=== PATIENT | female | born 1955 | race Caucasian/White ===

== ENCOUNTER 2017-08-07 14:50 | Inpatient (IN) | payer OTHER ==
[~2017-08-07] VITALS: Ht 172.7 cm; Wt 67.6 kg
--- NOTE | ~2017-08-07 | HC ---
[facility] [place] [address] CONSULTATION Name: KRISTAL PURI Room #: 216-P ADM IN M.R.#: [id number] Admission: 08/07/17 Attend Phys: Cristofer Hemphill MD Discharge: Date of : 53 Report #: [id number] THIS REPORT FOR: //name// CC: Cristofer Armstrong Sabih DATE OF SERVICE: 08/08/2017 DATE OF SERVICE: 08/08/2017 REASON FOR CONSULTATION: Hypoxia. IMPRESSION: 1. Acute respiratory failure, question etiology. 2. Bronchiectasis. 3. History of recent pneumonia and multiple allergies. 4. Elevated troponin. 5. Acute kidney injury. 6. History of lupus, fibromyalgia. PLAN: Continue current antibiotics. We will try to induce sputum, increase activity, titrate oxygen as able. We need to get results from [place] as she was admitted there for similar event. Try to keep sedation to a minimal. We will also have speech therapy evaluate. HISTORY OF PRESENT ILLNESS: A 62-year-old female with history of per chart, lupus, fibromyalgia, adrenal insufficiency, was at [facility]. She relates because of altered mental status and felt to have pneumonia. She relates she had MRSA also in the past. She denies fever or much sputum production. Possible chills. No headache, no visual disturbance. She is alert and oriented and recalled yesterday, but relates it is somewhat foggy. PAST MEDICAL HISTORY: Per chart, includes: ALLERGIES: PENICILLIN, CARBAMAZEPINE, CIPRO, DOXYCYCLINE AND LISINOPRIL. MEDICATIONS: Included MiraLax, pregabalin, spironolactone, Flomax, hydrocodone, Advair, baclofen, zolpidem, amitriptyline 75 mg, Coreg, Lasix, hydroxychloroquine, Mobic, Savella. SOCIAL HISTORY: Negative tobacco, negative EtOH for 30 years. No drugs of abuse, 2 children, she relates with back problems. REVIEW OF SYSTEMS: No hemoptysis, hematemesis or hematuria. Did not know about CT results. No history of DVT or PE. Does have neuropathy and arthritis. She denied a history of asthma. [facility] [address] [place] [address] CONSULTATION Name: KRISTAL PURI Room #: 216-P [facility] IN ..#: [id number] Admission: 08/07/17 Attend Phys: Cristofer Hemphill MD Discharge: Date of : 53 Report #: [id number] PHYSICAL EXAMINATION: VITAL SIGNS: Temperature 98.4, T-max 77, respirations 18, BP 151/68. EYES: Negative icterus. NECK: Trachea midline. Thyroid not enlarged. LUNGS: Showed decreased breath sounds, few crackles. HEART: Regular. ABDOMEN: Bowel sounds present. EXTREMITIES: Showed trace edema, no cyanosis. LABORATORY DATA: Troponin 0.12. CT PE protocol showed bronchiectasis, subpleural nodularity. D-dimer 2.58, pH 7.43, pCO2 of 51, pO2 of 55 on room air. She relates she has not been on oxygen except for in hospital. UA showed 1-9 bacteria, leukocyte 1+, nitrite positive, urine culture pending. CT head showed no acute. White count 11. No bands. Alkaline phosphatase 183, creatinine 1.3, albumin 3.2. Appreciate the opportunity to assist in the care of your patient. <ELECTRONICALLY SIGNED> By: Zoie Mathews MD 08/10/172049 0755 [id number] Zoie Mathews MD /nt
--- NOTE | ~2017-08-07 | EKG ---
[place] [address] [employer] [place] [address] ELECTROCARDIOGRAM REPORT Name: KRISTAL PURI Room #: [facility]#: [id number] Admission: 08/07/17 Attend Phys: Discharge: Date of : 53 Report #: [id number] THIS REPORT FOR: //name// [facility] ED Test Date: 2017-08-07 Test Time: 15:31:08 Pat Name: KRISTAL PURI Department: Room: Gender: F [employer]: JESÚS : 1955 Requested By: Leesa Marquez Order Number: [id number] MD: Caleb Beck Measurements Intervals [place] Rate: 82 P: 25 OK: 142 QRS: -31 QRSD: 101 T: 57 QT: 326 QTc: 381 Interpretive Statements Sinus rhythm Probable left atrial enlargement Left axis deviation RSR' in V1 or V2, probably normal variant Nonspecific T abnrm, anterolateral leads No previous ECG available for comparison Electronically Signed On 08-07-2017 16:33:28 CDT by Caleb Beck [email or web address] <ELECTRONICALLY SIGNED> By: Caleb Beck MD 08/07/17 1633 30 30 Caleb Beck MD /RAFAEL
--- NOTE | ~2017-08-07 | HC ---
[facility] [address] [place] [address] CONSULTATION Name: KRISTAL Pilar Room #: 216-P [facility] IN M.R.#: [id number] Admission: 08/07/17 Attend Phys: Cristofer Hemphill MD Discharge: 08/13/17 Date of : 53 Report #: [id number] THIS REPORT FOR: //name// CC: Cristofer Armstrong Sabih DATE OF SERVICE: 08/12/2017 HISTORY OF PRESENT ILLNESS: The patient is a 62-year-old white female with history of lupus, fibromyalgia, adrenal insufficiency, had a prolonged hospitalization at [facility] apparently for a couple of months with acute respiratory failure and was on the vent. He was noted to be nonambulatory for a couple of months during her acute hospitalization and was transferred over to [facility] for skilled level therapies. While at [facility] she subsequently developed mental status changes again with hypoxia, elevated creatinine, and was noted to have acute respiratory failure, elevated troponin, thought secondary to hypoxia, acute renal insufficiency. She was noted to have bronchiectasis and bronchitis and urinary tract infection. She did have an acute encephalopathy, which has resolved. Infectious Disease is involved and she is to be on IV antibiotics for at least another week. There is noted with peritoneal vein thrombus and pulmonary had suggested follow up to see if she may need anticoagulation. She is at a decreased functional level and we are seeing her in rehabilitation medicine consultation. PAST MEDICAL HISTORY: Includes hypertension, fibromyalgia, lupus, pulmonary edema. MEDICATIONS: Please see the full medication listing. She does have multiple allergies, as are listed. HABITS: No history of tobacco or alcohol abuse. SOCIAL HISTORY: She lives with her in a house, 2 steps in, and he works. She notes she has a bad knee and apparently needs to have a total knee replacement, but her surgeon is concerned that she may not be a good surgical candidate. Her works during the day. The patient did not like to use the cane premorbidly. Again per reports, she has been nonambulatory for the last couple of months with her acute hospitalization at [place] and subsequent stay at [facility]. REVIEW OF SYSTEMS: No current complaints of chest pain, shortness of breath or abdominal discomfort. Notes she does have degenerative arthritis with joint complaints. She has a chronic pain with her fibromyalgia. PHYSICAL EXAMINATION: GENERAL: A 62-year-old white female in no obvious distress. [address] [address] CONSULTATION Name: KRISTAL Pilar Room #: 216-P [facility] IN M.R.#: [id number] Admission: 08/07/17 Attend Phys: Cristofer Hemphill MD Discharge: 08/13/17 Date of : 53 Report #: [id number] VITAL SIGNS: Last recorded temperature 97.8, pulse 68, respirations 18, blood pressure 150/69. She is alert, oriented. HEENT: Appeared to be benign. NEUROLOGIC: Cranial nerves are grossly intact. Facies are symmetric. EXTREMITIES: Upper extremities functional range of motion with strength 4-/5. In lower extremities, she has strength more of a grade 3/5 to maybe 3+/5. DTRs are decreased overall. Functionally, she has been max assist with sit to stand. She can reposition herself once seated. 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 2. Medical complexity with generalized debilitation. 3. Recent acute respiratory failure. 4. Bronchiectasis. 5. Bronchitis. 6. Urinary tract infection. 7. Elevated troponin, possibly due to hypoxia. 8. Acute renal injury. 9. Acute encephalopathy that has resolved. 10. 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 PLAN: She is at a lower functional level currently and her tolerance appears more at a skilled level. She has concerns regarding her ability to tolerate further therapy at this time as well. Note that fdc facility options are being considered and I would agree with this plan. She indicated to me that she does desire to go to a different fdc facility. This will be communicated with case management. Thank you for asking us to assist in this patient's care. <ELECTRONICALLY SIGNED> By: Jonas Walker MD 08/18/17 1316 [id number] [id number] Jonas Walker MD /[facility]
--- NOTE | ~2017-08-07 | 2DMMODE ---
[facility] [address] [facility] [place] [facility] [place] [address] 2 D/M-MODE ECHOCARDIOGRAM Name: KRISTAL PURI Room #: 216-P [facility] IN ..#: [id number] Admission: 08/07/17 Attend Phys: Cristofer Hemphill, Discharge: Date of : 53 Date of Service: 08/09/17 0855 Report #: [id number] THIS REPORT FOR: //name// APPROVED REPORT Study performed: 08/09/2017 09:13:16 EXAM: Comprehensive 2D, Doppler, and color-flow Echocardiogram Patient Location: Bedside Room #: 216 Status: routine BSA: 1.73 HR: 76 bpm BP: 124/50 mmHg Rhythm: NSR Other Information Study Quality: Good Indications Dyspnea, slightly elevated troponin. 2D Dimensions RVDd: 35.25 mm LVEF(%): 53.54 (>50%) IVSd: 10.20 (7-11mm) LVOT Diam: 21.79 (18-24mm) LVDd: 45.05 mm PWd: 10.23 (7-11mm) Ascending Ao: 30.02 (22-36mm) LVDs: 32.66 (25-40mm) Aortic Root: 32.87 mm Vargas's LVEF: 53.54 % Volumes Left Atrial Volume (Systole) Single Plane 4CH: 31.34 mL Single Plane 2CH: 61.30 mL LA ESV Index: 27.00 mL/m2 Aortic Valve AoV Peak Tahir.: 1.45 m/s AO Peak Gr.: 8.38 mmHg LVOT Max P.72 mmHg LVOT Max V: 1.09 m/s SHARI Vmax: 2.80 cm2 Mitral Valve E/A Ratio: 1.1 MV Decel. Time: 101.05 ms [facility] [place] [address] 2 D/M-MODE ECHOCARDIOGRAM Name: KRISTAL PURI Room #: 216-P [facility] IN .R.#: [id number] Admission: 08/07/17 Attend Phys: Cristofer Hemphill, Discharge: Date of : 53 Date of Service: 08/09/17 0855 Report #: [id number] MV E Max Tahir.: 0.99 m/s MV A Tahir.: 0.93 m/s MV PHT: 29.31 ms IVRT: 92.27 ms Pulmonary Valve PV Peak Tahir.: 1.04 m/s PV Peak Gr.: 4.35 mmHg Pulmonary Vein P Vein S: 0.65 m/s P Vein D: 0.45 m/s P Vein S/D Ratio: 1.44 Tricuspid Valve TR Peak Tahir.: 2.52 m/s RAP Estimate: 5.00 mmHg TR Peak Gr.: 25.35 mmHg PA Pressure: 30.00 mmHg Left Ventricle The left ventricle is normal size. There is normal LV segmental wall motion. Mild concentric LVH Left ventricular systolic function is normal. LVEF is 55-60%. Moderate diastolic dysfunction is present (pseudonormal filling). Right Ventricle The right ventricle is normal size. The right ventricular systolic function is normal. Atria The left atrium size is normal. The right atrium size is normal. Aortic Valve The aortic valve is normal in structure. No aortic regurgitation is present. There is no aortic valvular stenosis. Mitral Valve The mitral valve is normal in structure. Trace mitral regurgitation. Tricuspid Valve The tricuspid valve is normal in structure. Mild tricuspid regurgitation. Estimated PAP is 30mmHg. Pulmonic Valve The pulmonary valve is normal in structure. Trace pulmonic [address] [address] 2 D/M-MODE ECHOCARDIOGRAM Name: KRISTAL PURI Room #: 216-P [facility] IN .R.#: [id number] Admission: 08/07/17 Attend Phys: Cristofer Hemphill, Discharge: Date of : 53 Date of Service: 08/09/17 0855 Report #: [id number] regurgitation. Great Vessels The aortic root is normal in size. The ascending aorta is normal in size. IVC is normal in size and collapses >50% with inspiration. Pericardium There is no pericardial effusion. <Conclusion> Left ventricular systolic function is normal. There is normal LV segmental wall motion. Mild concentric LVH. LVEF 55-60%. Moderate diastolic dysfunction (pseudonormal filling). Structural valve disease was absent. No significant regurgitant or stenotic lesions Pulmonary artery pressure of 30mmHg There is no pericardial effusion. <ELECTRONICALLY SIGNED> By: Austin Young MD, FACC 08/09/17854 4 4 Austin Young MD, FACC /INF
[2017-08-07 14:51] VITALS: BP 150/54
[2017-08-07 15:18] LABS: HEMOGLOBIN 10.6 gm/dL (12.0-15.0)
[2017-08-07 15:20] LABS: ABSOLUTE NEUTROPHILS 8.6 thou/uL (1.4-8.2); BASOPHILS 0.7 % (0.0-2.0); EOSINOPHILS 1.7 % (0.0-3.0); HEMATOCRIT 32.2 % (37.0-47.0); LYMPHOCYTES 11.4 % (24.0-44.0); MCH 29.7 pg (26.0-34.0); MCHC 32.8 g/dL (28.0-37.0); MCV 90.6 fL (80.0-100.0); MONOCYTES 8.7 % (1.0-8.0); PLATELET COUNT 280 thou/uL (150-400); POLYS 77.5 % (36.0-66.0); RBC 3.56 mil/uL (4.20-5.00); RDW 15.5 % (10.5-14.5)
[2017-08-07 15:22] LABS: MANUAL DIFF NO
[2017-08-07 15:23] LABS: CALCIUM 10.4 mg/dL (8.5-10.1); CREATININE 1.3 mg/dL (0.6-1.0); POTASSIUM 4.4 mmol/L (3.5-5.1)
[2017-08-07 15:32] LABS: ALBUMIN 3.2 g/dL (3.4-5.0); TOTAL BILIRUBIN 0.2 mg/dL (<0.1-1.0); TOTAL PROTEIN 7.3 g/dL (6.4-8.2); TROPONIN-I 0.11 ng/mL (<0.06)
[2017-08-07 16:28] LABS: URINE BILIRUBIN NEGATIVE (Negative); URINE BLOOD NEGATIVE (Negative); URINE COLOR YELLOW; URINE GLUCOSE-RANDOM* NEGATIVE (Negative); URINE KETONES NEGATIVE (Negative); URINE NITRITE POSITIVE (Negative); URINE PROTEIN (DIPSTICK) NEGATIVE (Negative); URINE UROBILINOGEN 0.2 E.U./dl (0.2-1.0)
[2017-08-07 16:31] LABS: SQUAMOUS 0-3 Few /LPF (0-3)
[2017-08-07 16:32] LABS: BACTERIA 1-9 Few /HPF (None Seen); CASTS None Seen /LPF (None Seen); CRYSTALS None Seen /LPF (None Seen); URINE RBC None Seen /HPF (0-2); URINE WBC 0-5 Rare /HPF (0-5)
[2017-08-07 16:59] LABS: ABG SAMPLE TYPE ARTERIAL; BE(vivo) 7.8 mmol/L (-2 to +3); HCO3 33.2 mmol/L (22.0-26.0); LACTATE 0.84 mmol/L (0.5-2.0); O2(CT) 13.3 mL/dL (15.0-23.0); O2Hb 85.9 % (92.0-98.0); pH 7.432 (7.360-7.450); sO2 89.1 % (92.0-98.0); tCO2 34.8 mmol/L (24.0-30.0)
[2017-08-07 17:00] LABS: PO2 55.1 mmHg (80.0-100.0); STICK SITE R.RADIAL
[2017-08-07] MEDS ORDERED: MIRALAX17 GM PO (17:50)
[2017-08-07] MEDS ORDERED: ALDACTONE50 MG PO (17:51)
[2017-08-07] MEDS ORDERED: LYRICA 50 MG50 MG PO (17:51)
[2017-08-07] MEDS ORDERED: DUONEB 2.5-0.5 M3 ML INH (17:52)
[2017-08-07] MEDS ORDERED: FLOMAX0.4 MG PO (17:52)
[2017-08-07] MEDS ORDERED: NORCO 5-325 TA1 EACH PO (17:53)
[2017-08-07] MEDS ORDERED: ADVAIR HFA 230M12 GM INH (17:54)
[2017-08-07] MEDS ORDERED: COLACE100 MG PO (17:54)
[2017-08-07] MEDS ORDERED: BIOTENE MOIST44.3 ML SPRAY (17:54)
[2017-08-07] MEDS ORDERED: LIORESAL 10 MG10 MG PO (17:55)
[2017-08-07] MEDS ORDERED: AMBIEN 5 MG TABL5 M1 PO (17:56)
[2017-08-07] MEDS ORDERED: ASPIR-LOW81 MG PO (17:57)
[2017-08-07] MEDS ORDERED: AMITRIPTYLINE H25 M2 PO (17:57)
[2017-08-07] MEDS ORDERED: CALCIUM 500 +1 EAC5 PO (17:58)
[2017-08-07] MEDS ORDERED: SENNA8.6 MG PO (17:59)
[2017-08-07] MEDS ORDERED: CARVEDILOL3.125 MG PO (17:59)
[2017-08-07] MEDS ORDERED: LASIX 40 MG TAB40 M2 PO (18:00)
[2017-08-07] MEDS ORDERED: HYDROXYCHLOROQ200 M1 PO (18:02)
[2017-08-07] MEDS ORDERED: HYDROCORTISONE PO (18:02)
[2017-08-07] MEDS ORDERED: SAVELLA50 MG PO (18:03)
[2017-08-07] MEDS ORDERED: MOBIC7.5 MG PO (18:03)
[2017-08-07 18:42] VITALS: BP 149/57
[2017-08-08 00:27] VITALS: BP 150/62
[2017-08-08 03:04] VITALS: BP 151/68
[2017-08-08 08:00] VITALS: BP 119/47
[2017-08-08 12:00] VITALS: BP 115/48
[2017-08-08 15:03] LABS: ABG SAMPLE TYPE ARTERIAL; HCO3 30.5 mmol/L (22.0-26.0); LACTATE 1.05 mmol/L (0.5-2.0); O2(CT) 13.1 mL/dL (15.0-23.0); O2Hb 96.6 % (92.0-98.0); PCO2 50.3 mmHg (35.0-45.0); PO2 108.3 mmHg (80.0-100.0); pH 7.401 (7.360-7.450); sO2 97.9 % (92.0-98.0); tCO2 32.1 mmol/L (24.0-30.0)
[2017-08-08 15:04] LABS: ABG COMMENT NO COMPLICATIONS.; STICK SITE R.RADIAL
[2017-08-08 16:00] VITALS: BP 124/50
[2017-08-08 16:06] LABS: IgA 269 mg/dL (87-352); IgG 827 mg/dL (700-1600); IgM 161 mg/dL (26-217)
[2017-08-08 19:39] VITALS: BP 108/51
[2017-08-09 04:41] VITALS: BP 102/49
[2017-08-09 09:01] VITALS: BP 116/51
[2017-08-09 09:57] LABS: HEMATOCRIT 28.5 % (37.0-47.0); HEMOGLOBIN 9.3 gm/dL (12.0-15.0); MCH 30.1 pg (26.0-34.0); MCHC 32.7 g/dL (28.0-37.0); MCV 92.2 fL (80.0-100.0); RBC 3.09 mil/uL (4.20-5.00); RDW 15.5 % (10.5-14.5); WBC 7.5 thou/uL (4.0-11.0)
[2017-08-09 10:04] LABS: CREATININE 1.1 mg/dL (0.6-1.0); POTASSIUM 3.7 mmol/L (3.5-5.1)
[2017-08-09 20:38] VITALS: BP 110/52
[2017-08-10 03:07] VITALS: BP 118/57
[2017-08-10 08:15] VITALS: BP 118/52
[2017-08-10 11:10] VITALS: BP 101/44
[2017-08-10 15:13] VITALS: BP 121/60
[2017-08-10 19:30] VITALS: BP 143/54
[2017-08-11 04:30] VITALS: BP 145/65
[2017-08-11 06:02] LABS: HEMATOCRIT 25.2 % (37.0-47.0); HEMOGLOBIN 8.3 gm/dL (12.0-15.0); MCH 29.9 pg (26.0-34.0); MCHC 32.7 g/dL (28.0-37.0); MCV 91.5 fL (80.0-100.0); RBC 2.76 mil/uL (4.20-5.00); RDW 15.3 % (10.5-14.5); WBC 7.8 thou/uL (4.0-11.0)
[2017-08-11 06:08] LABS: CALCIUM 8.7 mg/dL (8.5-10.1); CREATININE 0.9 mg/dL (0.6-1.0); POTASSIUM 3.8 mmol/L (3.5-5.1)
[2017-08-11 07:58] VITALS: BP 121/57
[2017-08-11 11:33] VITALS: BP 103/50
[2017-08-11 15:29] VITALS: BP 134/59
[2017-08-11 19:20] VITALS: BP 141/62
[2017-08-12 03:39] VITALS: BP 118/64
[2017-08-12 07:51] VITALS: BP 133/63
[2017-08-12 11:08] VITALS: BP 150/69
[2017-08-12 15:00] VITALS: BP 120/58
[2017-08-12 19:19] VITALS: BP 153/75
[2017-08-13 03:49] VITALS: BP 157/71
[2017-08-13 06:55] VITALS: BP 136/65
[2017-08-13 11:15] VITALS: BP 149/67
[2017-08-13] MEDS ORDERED: VANCO 1.251.25 GM/15 IV (12:44)
[2017-08-13] MEDS ORDERED: ROCEPHIN 11 GM/1001 IV (12:45)
[2017-08-13] MEDS ORDERED: CARVEDILOL6.25 MG PO (12:46)
[2017-08-13] MEDS ORDERED: CORTEF 20 MG TA20 M1 PO (12:50)
== END 2017-08-13 16:00 | DRG 177 ==
LOC: ER 14:50 → 2N 17:41
PROVIDERS: Hospitalist; Internal Medicine; Internal Medicine Pulmonary Disease; Nurse Practitioner Family
DX: J15.212 Pneumonia due to Methicillin resistant Staphylococcus aureus (principal); J96.01 Acute respiratory failure with hypoxia; N17.9 Acute kidney failure, unspecified; N39.0 Urinary tract infection, site not specified; G93.1 Anoxic brain damage, not elsewhere classified; I82.890 Acute embolism and thrombosis of other specified veins; E66.2 Morbid (severe) obesity with alveolar hypoventilation; I10 Essential (primary) hypertension; M79.7 Fibromyalgia; M32.9 Systemic lupus erythematosus, unspecified; J47.9 Bronchiectasis, uncomplicated; B96.1 Klebsiella pneumoniae [K. pneumoniae] as the cause of diseases classified elsewhere; D64.9 Anemia, unspecified; R21 Rash and other nonspecific skin eruption; Z79.899 Other long term (current) drug therapy; Z88.1 Allergy status to other antibiotic agents; Z88.8 Allergy status to other drugs, medicaments and biological substances; Z87.01 Personal history of pneumonia (recurrent); Z88.0 Allergy status to penicillin; Z87.440 Personal history of urinary (tract) infections; Z88.2 Allergy status to sulfonamides; Z68.22 Body mass index [BMI] 22.0-22.9, adult
CPT/HCPCS: 10081; 27001